=== PATIENT | male | born 1990 | race African-American/Black ===

== ENCOUNTER 2018-05-26 09:24 | Inpatient (IN) ==
[2018-05-26] MEDS ORDERED: KETOROLAC TROMETHAMINE 60 MG/2 ML VIAL IM STA (09:37)
--- NOTE | 2018-05-26 10:10 | Emergency Department Note ---
History of Present Illness General Chief complaint: Leg Injury/Pain Time Seen by Provider: 05/26/18 09:33 History of Present Illness 27-year-old male who presents to emergency department via ambulance for evaluati on of bilateral lower extremity cramping. The patient reports that he ran a little over a mile when he started to experience cramping sensation. He did not fall or stumble. The patient reports no significant prior history of muscle cramps. The patient is currently enrolled in the [employer] since February. He denies any other significant strenuous activities recently. He rates his discomfort a 10 out of 10. 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 Beliefs That Will Affect Care: None marital status: Single Current Living Situation: Other Current Living Situation Comment: apartment with roommates current occupational status: student Other Information That Helps Us Care for You: No Feels Safe at Home: Yes Safety Concerns: Feels Safe At This Time Smoking Status: Never smoker Do You Dip or Chew Tobacco: No Second Hand Exposure: No Tobacco Cessation Education Requested by Patient: No Hx Alcohol Use: Yes Alcohol type: beer Hx Substance Use: No Review of Systems 10 system review was performed and was negative except for pertinent positives and negatives as indicated in history of present illness Physical Exam Vital Signs Vital Signs - 24 hr 05/26/18 09:33 05/26/18 10:52 05/26/18 11:55 Temperature 36.8 C Temperature Source Oral Sepsis Recent Fever Within 48 Hours No Sepsis Action Taken by Nursing No Action Required Pulse Rate 86 Pulse Rate [Apical] 84 Pulse Rhythm [Apical] Pulse Strength [Apical] Respiratory Rate 20 16 16 Respiratory Effort / Characteristics Non-Labored Spontaneous Respiratory Depth Normal Respiratory Pattern Regular Blood Pressure 100/48 L Blood Pressure [Right Arm] 147/73 H 123/52 L Blood Pressure Mean 65 Blood Pressure Mean [Right Arm] 97 75 Blood Pressure Position Lying Blood Pressure Position [Right Arm] Pulse Oximetry 98 76 L Oxygen Delivery Method Room Air 05/26/18 13:06 05/26/18 16:00 Temperature 36.5 C Temperature Source Oral Sepsis Recent Fever Within 48 Hours Sepsis Action Taken by Nursing Pulse Rate Pulse Rate [Apical] 88 80 Pulse Rhythm [Apical] Regular Pulse Strength [Apical] Normal Respiratory Rate 18 20 Respiratory Effort / Characteristics Non-Labored Respiratory Depth Normal Respiratory Pattern Regular Blood Pressure Blood Pressure [Right Arm] 143/69 H 151/91 H Blood Pressure Mean Blood Pressure Mean [Right Arm] 93 111 Blood Pressure Position Blood Pressure Position [Right Arm] Lying Pulse Oximetry 98 95 Oxygen Delivery Method Room Air Room Air CONSTITUTIONAL: Healthy and well nourished. Alert and oriented X 3. Patient appears in moderately severe discomfort. HEENT: Normocephalic, atraumatic. Pupils equal, round and reactive. NECK: Full active range of motion without discomfort. LYMPHATICS: No cervical chain adenopathy. RESPIRATORY: Clear to auscultation bilaterally with no wheezing, crackles, rhonchi or stridor. CARDIOVASCULAR: Regular rate and rhythm with no murmurs, rubs or gallops. GASTROINTESTINAL: Bowel sounds present in all quadrants. Soft and nontender to palpation. MUSCULOSKELETAL: Examination of the lower extremities does not show any obvious soft tissue edema, ecchymosis or palpable spasms/muscular rigidity. Negative logroll bilaterally. Pedal pulses are intact. INTEGUMENTARY: No rash or other significant dermatologic conditions noted. HEMATOLOGIC: No ecchymosis or petechiae. PSYCHIATRIC: Positive affect. NEUROLOGIC: No focal neurologic deficits noted. Course Patient history and physical exam were performed. Nurse's notes were reviewed. Vital signs were reviewed and were the patient was administered IM Toradol, and was provided oral hydration. When this did not provide any significant relief, and the patient continued to bag for more oral hydration, IV access was established, and labs were drawn. The patient was administered IV Valium, and was provided hydration with 2 additional liters of normal saline. Labs were reviewed to show a marked leukocytosis with left shift and bandemia. Patient has a total creatinine kinase of 5147, mild hyponatremia at 135 and creatinine of 2.17. Anion gap is 16. Urinalysis was ordered, but the patient was unable to provide a urine sample while in the emergency department. Findings were discussed with Dr. Garay, ED attending physician, who recommended hospitalist consultation. The case was then discussed with the [facility] hospitalist service, who came to the emergency department and agreed with admission for rhabdomyolysis. Please see their dictation for further treatment and final disposition. Administered Medications Sodium Chloride (Nss 1000ml) 1,000 mls @ 200 mls/hr IV .Q5H SRINIVASAN Stop: 06/25/18 16:18 Last Admin: 05/26/18 16:56 Dose: 200 mls/hr Documented by: [id number] Tramadol HCl (Ultram) 50 mg PO Q4H PRN PRN Reason: Pain Stop: 06/25/18 16:18 Last Admin: 05/26/18 16:57 Dose: 50 mg Documented by: [id number] Discontinued Medications Acetaminophen (Tylenol) 1,000 mg PO NOW STA Stop: 05/26/18 11:41 Last Admin: 05/26/18 12:06 Dose: 1,000 mg Documented by: [id number] Baclofen (Lioresal) 10 mg PO NOW STA Stop: 05/26/18 14:25 Last Admin: 05/26/18 15:48 Dose: 10 mg Documented by: [id number] Diazepam (Valium) 5 mg IV NOW STA Stop: 05/26/18 11:43 Last Admin: 05/26/18 12:06 Dose: 5 mg Documented by: [id number] Diazepam (Valium) 10 mg IV NOW STA Stop: 05/26/18 14:25 Last Admin: 05/26/18 15:05 Dose: 10 mg Documented by: [id number] Diazepam (Valium) Confirm Administered Dose 5 mg .ROUTE .STK-MED ONE Stop: 05/26/18 14:40 Last Admin: 05/26/18 15:22 Dose: Not Given Documented by: [id number] Sodium Chloride (Nss 1000ml) 1,000 mls @ 999 mls/hr IV .Q1H1M ONE Stop: 05/26/18 12:40 Last Infusion: 05/26/18 13:14 Dose: 0 mls/hr Documented by: [id number] Admin: 05/26/18 12:06 Dose: 999 mls/hr Documented by: [id number] Sodium Chloride (Nss 1000ml) 1,000 mls @ 999 mls/hr IV .Q1H1M ONE Stop: 05/26/18 14:38 Last Infusion: 05/26/18 14:50 Dose: 0 mls/hr Documented by: [id number] Admin: 05/26/18 13:49 Dose: 999 mls/hr Documented by: [id number] Ketorolac Tromethamine (Toradol) 60 mg IM NOW STA Stop: 05/26/18 09:38 Last Admin: 05/26/18 09:42 Dose: 60 mg Documented by: [id number] Medical Decision Making Medical Records Attestation: I reviewed the patient's medical records. Home Medications Current Medication List: was personally reviewed by me Laboratory Data Attestation: I reviewed the patient's lab results. Result diagrams: 05/26/18 12:01 05/26/18 12:01 Lab Results 05/26/18 05/26/18 05/26/18 Range/Units 12:01 12:01 12:01 WBC 24.25 H (4.8-10.8) K/uL RBC 5.76 (4.7-6.1) M/uL Hgb 17.8 (14.0-18.0) g/dL Hct 49.6 (42-52) % MCV 86.1 (80-100) fL MCH 30.9 (25-34) pg MCHC 35.9 (32-36) g/dL RDW Std Deviation 40.6 (36.4-46.3) fL RDW Coeff of Ryan 12.9 (11.5-14.5) % Plt Count 310 (130-400) K/uL MPV 10.2 (7.4-10.4) fL Immature Gran % (Auto) 0.5 % Neut % (Auto) 85.0 % Lymph % (Auto) 4.7 % [place] % (Auto) 9.8 % Eos % (Auto) 0.0 % Baso % (Auto) 0.0 % Immature Gran # (Auto) 0.13 H (0.00-0.02) K/uL Neut # (Auto) 20.57 H (1.4-6.5) K/uL Lymph # (Auto) 1.15 L (1.2-3.4) K/uL [place] # (Auto) 2.38 H (0.11-0.59) K/uL Eos # (Auto) 0.01 (0-0.5) K/uL Baso # (Auto) 0.01 (0-0.2) K/uL Sodium 135 L (136-145) mmol/L Potassium 3.7 (3.5-5.1) mmol/L Chloride 98 (98-107) mmol/L Carbon Dioxide 21 (21-32) mmol/L Anion Gap 16.0 H (3-11) BUN 11 (7-18) mg/dl Creatinine 2.17 H (0.6-1.4) mg/dl Est Cr Clr Drug Dosing 61.4 ml/min Est GFR ( Amer) 47.3 Est GFR (Non-Af Amer) 40.8 BUN/Creatinine Ratio 5.2 L (10-20) Glucose 134 H (70-99) mg/dl Calcium 9.9 (8.5-10.1) mg/dl Magnesium 4.4 H (1.8-2.4) mg/dl Total Bilirubin 0.6 (0.2-1) mg/dl AST 107 H (15-37) U/L ALT 44 (12-78) U/L Alkaline Phosphatase 104 (45-117) U/L Total Creatine Kinase 5147 H (39-308) U/L Total Protein 9.6 H (6.4-8.2) gm/dl Albumin 4.8 (3.4-5.0) gm/dl Globulin 4.8 H (2.5-4.0) gm/dl Albumin/Globulin Ratio 1.0 (0.9-2) Imaging Data Attestation: I personally reviewed and interpreted this imaging study as follows: Prescription Drug Monitoring [place] Drug Monitoring Program reviewed and no issues identified Blood Pressure Blood Pressure Findings: Normal blood pressure MDM Narrative Workup today is suggestive of rhabdomyolysis with an acute kidney injury. I do not suspect fracture, therefore x-rays were not performed. The patient was completing the [employer], and I suspect that she has had overexertion. Impression & Plan Rhabdomyolysis, ASHLEY (acute kidney injury), Leukocytosis, Muscle spasm of both lower legs Discharge Plan Visit Data *Final* Discharge Date/Time: 05/26/18 15:19 Chief Complaint: Leg Injury/Pain ED Provider: Phu Garay ED Midlevel Provider: Matthew Owens Discharge Problem: Rhabdomyolysis, ASHLEY (acute kidney injury), Leukocytosis, Muscle spasm of both lower legs Patient Disposition: Admitted As Inpatient Discharge Instructions Interventions: ED Discharge Assessment Last Done: 05/26/18 15:19 Discharge Problem: Rhabdomyolysis Qualifiers: Rhabdomyolysis type: non-traumatic Qualified Code(s): M62.82 - Rhabdomyolysis Leukocytosis Qualifiers: Leukocytosis type: unspecified Qualified Code(s): D72.829 - Elevated white blood cell count, unspecified
[2018-05-26] MEDS ORDERED: ACETAMINOPHEN 500 MG TAB PO STA (11:40)
[2018-05-26] MEDS ORDERED: SODIUM CHLORIDE 0.9% 1000ML 1,000 ML IV ONE ×2 (11:40→13:38)
[2018-05-26] MEDS ORDERED: DIAZEPAM 5 MG/ML INJ 10ML VIAL IV STA ×2 (11:42→14:24)
[2018-05-26 12:27] LABS: Hematocrit (blood only) 49.6 % (42-52); Hemoglobin 17.8 g/dL (14.0-18.0); Mean Corpuscular Hgb Conc 35.9 g/dL (32-36); Mean Corpuscular Volume 86.1 fL (80-100); Mean Platelet Volume 10.2 fL (7.4-10.4); Platelet Count 310 K/uL (130-400); RDW Coefficient of Variation 12.9 % (11.5-14.5); RDW Standard Deviation 40.6 fL (36.4-46.3); Red Blood Count 5.76 M/uL (4.7-6.1); White Blood Count 24.25 K/uL (4.8-10.8)
[2018-05-26 12:44] LABS: Albumin Level 4.8 gm/dl (3.4-5.0); BUN Creatinine Ratio 5.2 (10-20); Calcium 9.9 mg/dl (8.5-10.1); Creatinine Clr Calc Pharmacy 61.4 ml/min; Est GFR (African American) 47.3; Est GFR (Non-African American) 40.8; Magnesium 4.4 mg/dl (1.8-2.4); Potassium 3.7 mmol/L (3.5-5.1)
[2018-05-26 12:46] LABS: Basophils # (auto) 0.01 K/uL (0-0.2); Bilirubin,Total 0.6 mg/dl (0.2-1); Eosinophils # (auto) 0.01 K/uL (0-0.5); Globulin 4.8 gm/dl (2.5-4.0); Immature Granulocytes # (auto) 0.13 K/uL (0.00-0.02); Immature Granulocytes % (auto) 0.5 %; Lymphocytes # (auto) 1.15 K/uL (1.2-3.4); Lymphocytes % (auto) 4.7 %; Monocytes # (auto) 2.38 K/uL (0.11-0.59); Monocytes % (auto) 9.8 %; Neutrophils # (auto) 20.57 K/uL (1.4-6.5); Total Protein 9.6 gm/dl (6.4-8.2)
[2018-05-26] MEDS ORDERED: BACLOFEN 10 MG TAB PO STA (14:24)
--- NOTE | 2018-05-26 14:37 | History & Physical Report ---
Date of Service May 26, 2018 Assessment & Plan (1) Rhabdomyolysis: CK elevated at 5000 unable to give us urine sample so unsure if there is myoglobin in urine Cr elevated at 2.31 aggressive hydration with NSS at 200cc/hr to flush kidneys repeat CK level in the morning this would be non-traumatic rhabdomyolysis (2) ASHLEY (acute kidney injury): Cr is 2.31, unsure of baseline or how long Cr has been elevated patient reports that up until this morning he was feeling well he was making urine yesterday, no problems in the past with renal dysfunction will order UA, will order renal US if renal function does not improve or gets worse tomorrow will consult nephrology (3) Leukocytosis: unclear etiology, no fever, no other symptoms of illness bilateral leg pain started suddenly after running will attempt CXR once he can sit up check UA for source of infection if he spikes fever then start empiric antibiotics (4) Muscle spasm of both lower legs: started at the end of a 1.5 mile run, he was really pushing his pace since they were being tested he finished but then collapsed in pain and could not extend legs has severe pain and cramping of quadriceps, hamstrings, gluts CK elevated at 5000 no relief with Diazepam 5mg IV in the ED on the floor Diazepam has to be PO, will order 5mg PO q6 PRN, Baclofen 20mg BID, Morphine History of Present Illness Chief Complaint: My legs hurt so bad Primary Care Provider: NO PCP 27 yo male with no medical history presents for acute pain in both legs after running today. He says he is in town attending [facility] [employer] [facility]. They have been running several times a week and today was there timed run for 1.5 miles. He said he pushed himself extra hard to try to break his own record which he did end up breaking. However, immediately after the run he collapsed in severe pain in both quadriceps, hamstrings and gluts. His legs were in spasm and he could not walk. He could not move his legs due to the severity of the pain, also his muscles could not move due to the spasm. He was brought to the ED by ambulance. He says that he had no other symptoms other than the severe leg pain. No chest pain, no dyspnea, no palpitations. No fever or chills. He says he has been eating and drinking well. He has not been lifting weights, just running. He denies taking any supplements or steroids. No illicit drug use. Does not smoke cigarettes and drinks only socially. In the ED his CK was elevated at 5000 and his Cr was elevated at 2.3. No history of renal disease. He says his mother has Lupus but no other medical issues, specifically kidney disease, in his family. The pain was not relieved with Valium in the ED and he was given a NSS bolus. 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 Beliefs That Will Affect Care: None marital status: Single Current Living Situation: Other Current Living Situation Comment: apartment with roommates current occupational status: student Other Information That Helps Us Care for You: No Feels Safe at Home: Yes Safety Concerns: Feels Safe At This Time Smoking Status: Never smoker Do You Dip or Chew Tobacco: No Second Hand Exposure: No Tobacco Cessation Education Requested by Patient: No Hx Alcohol Use: Yes Alcohol type: beer Hx Substance Use: No Review of Systems Review of Systems: All systems reviewed & are unremarkable except as noted in HPI & below Musculoskeletal: + stiffness, + limited range of motion (due to severe muscle cramps) and + myalgia (incredible pain in legs bilaterally); no back pain and no joint pain Physical Exam Constitutional: WD/WN, vitals as above Eyes: PERRL, conjunctivae normal, anicteric sclerae ENMT: external ear and nose normal, oropharynx normal Neck: trachea midline, no thyromegaly Respiratory: normal respiratory effort, lungs clear to auscultation Cardiovascular: RRR, no murmur, no edema Gastrointestinal (Abdomen): normal bowel sounds, soft, nontender, no hepatosplenomegaly Musculoskeletal: Head/Neck/Chest: normocephalic, head atraumatic and neck supple Extremities: + limited ROM of extremities, strength 5/5 throughout and + abnormal muscle tone (intense spasm in legs bilaterally, in quads, hamstrings and gluts); no muscle atrophy, no cyanosis and no clubbing Results & Data Vital Signs (Past 12 Hours) Vital Signs Temp Pulse Pulse Resp BP BP Pulse Ox 05/26/18 13:06 88 18 143/69 H 98 05/26/18 11:55 84 16 123/52 L 05/26/18 10:52 16 147/73 H 76 L 05/26/18 09:33 36.8 C 86 20 100/48 L 98 Laboratory Results Laboratory Results - last 24 hr 05/26/18 05/26/18 05/26/18 12:01 12:01 12:01 WBC 24.25 H RBC 5.76 Hgb 17.8 Hct 49.6 MCV 86.1 MCH 30.9 MCHC 35.9 RDW Std Deviation 40.6 RDW Coeff of Ryan 12.9 Plt Count 310 MPV 10.2 Immature Gran % (Auto) 0.5 Neut % (Auto) 85.0 Lymph % (Auto) 4.7 [place] % (Auto) 9.8 Eos % (Auto) 0.0 Baso % (Auto) 0.0 Immature Gran # (Auto) 0.13 H Neut # (Auto) 20.57 H Lymph # (Auto) 1.15 L [place] # (Auto) 2.38 H Eos # (Auto) 0.01 Baso # (Auto) 0.01 Sodium 135 L Potassium 3.7 Chloride 98 Carbon Dioxide 21 Anion Gap 16.0 H BUN 11 Creatinine 2.17 H Est Cr Clr Drug Dosing 61.4 Est GFR ( Amer) 47.3 Est GFR (Non-Af Amer) 40.8 BUN/Creatinine Ratio 5.2 L Glucose 134 H Calcium 9.9 Magnesium 4.4 H Total Bilirubin 0.6 AST 107 H ALT 44 Alkaline Phosphatase 104 Total Creatine Kinase 5147 H Total Protein 9.6 H Albumin 4.8 Globulin 4.8 H Albumin/Globulin Ratio 1.0 Urine Color Urine Appearance Urine pH Ur Specific [place] Urine Protein Urine Glucose (UA) Urine Ketones Urine Blood Urine Nitrite Urine Bilirubin Urine Urobilinogen Ur Leukocyte Esterase Urine RBC Urine WBC Ur Epithelial Cells Other Crystals Urine Bacteria 05/26/18 16:50 WBC RBC Hgb Hct MCV MCH MCHC RDW Std Deviation RDW Coeff of Ryan Plt Count MPV Immature Gran % (Auto) Neut % (Auto) Lymph % (Auto) [place] % (Auto) Eos % (Auto) Baso % (Auto) Immature Gran # (Auto) Neut # (Auto) Lymph # (Auto) [place] # (Auto) Eos # (Auto) Baso # (Auto) Sodium Potassium Chloride Carbon Dioxide Anion Gap BUN Creatinine Est Cr Clr Drug Dosing Est GFR ( Amer) Est GFR (Non-Af Amer) BUN/Creatinine Ratio Glucose Calcium Magnesium Total Bilirubin AST ALT Alkaline Phosphatase Total Creatine Kinase Total Protein Albumin Globulin Albumin/Globulin Ratio Urine Color Brown Urine Appearance Cloudy H Urine pH Ur Specific [place] 1.013 Urine Protein Urine Glucose (UA) Urine Ketones Urine Blood Urine Nitrite Urine Bilirubin Urine Urobilinogen Ur Leukocyte Esterase Urine RBC 0-4 Urine WBC 0-5 Ur Epithelial Cells 0-5 Other Crystals Urine Bacteria 1+ H Code Status & VTE Plan Code Status full code VTE Prophylaxis Plan VTE Prophylaxis will be ordered: No
[2018-05-26] MEDS ORDERED: DIAZEPAM 5 MG/ML INJ 10ML VIAL ONE (14:39)
[2018-05-26] MEDS ORDERED: ACETAMINOPHEN 325 MG TAB PO PRN (16:19)
[2018-05-26] MEDS ORDERED: ONDANSETRON INJ 2 MG/ML 2 ML VIAL IV PRN (16:19)
[2018-05-26] MEDS: SODIUM CHLORIDE 0.9% 1000ML 1,000 ML IV SCH ×2 (16:56→22:05)
[2018-05-26] MEDS: TRAMADOL HCL 50 MG TABLET PO PRN (16:57)
[2018-05-26 18:12] LABS: Appearance Urine Cloudy (Clear); Color Urine Brown
[2018-05-26 18:15] LABS: Specific Gravity Urine 1.013 (1.000-1.060)
[2018-05-26 18:18] LABS: Bacteria Urine 1+ (Negative); RBC Urine 0-4 /hpf (0-4); WBC Urine 0-5 /hpf (0-5)
[2018-05-26 18:27] LABS: Epithelial Cell Urine 0-5 /lpf (0-5)
[2018-05-26] MEDS ORDERED: DIAZEPAM 5 MG/ML INJ 10ML VIAL IV PRN (18:40)
[2018-05-26] MEDS: diazePAM 5 MG TABLET PO PRN (20:07)
[2018-05-26] MEDS: MoRPHine SULFATE 4 MG/ML 1 ML CARP\\VIAL IV PRN (21:06)
[2018-05-26] MEDS: BACLOFEN 20 MG TAB PO SCH (21:06)
[2018-05-26] MEDS ORDERED: HYDROmorphone INJ 1 MG/ML SYRINGE IV STA (22:49)
[2018-05-27] MEDS: MoRPHine SULFATE 4 MG/ML 1 ML CARP\\VIAL IV PRN ×4 (02:30→16:11)
[2018-05-27] MEDS: SODIUM CHLORIDE 0.9% 1000ML 1,000 ML IV SCH ×4 (02:30→17:05)
[2018-05-27] MEDS: diazePAM 5 MG TABLET PO PRN ×2 (02:30→15:11)
[2018-05-27] MEDS ORDERED: HYDROmorphone INJ 1 MG/ML SYRINGE IV STA (05:32)
[2018-05-27] MEDS ORDERED: ACETAMINOPHEN 1,000 MG/100 ML VIAL IV STA (05:32)
[2018-05-27 06:23] LABS: Hematocrit (blood only) 45.3 % (42-52); Hemoglobin 16.6 g/dL (14.0-18.0); Mean Corpuscular Hgb Conc 36.6 g/dL (32-36); Mean Platelet Volume 10.6 fL (7.4-10.4); Platelet Count 239 K/uL (130-400); RDW Coefficient of Variation 13.3 % (11.5-14.5); RDW Standard Deviation 41.2 fL (36.4-46.3); Red Blood Count 5.33 M/uL (4.7-6.1); White Blood Count 21.09 K/uL (4.8-10.8)
[2018-05-27 06:54] LABS: Calcium 7.4 mg/dl (8.5-10.1); Creatinine Clr Calc Pharmacy 37.9 ml/min; Est GFR (African American) 25.3; Est GFR (Non-African American) 21.8; Potassium 5.8 mmol/L (3.5-5.1)
[2018-05-27] MEDS: BACLOFEN 20 MG TAB PO SCH ×2 (07:58→22:07)
[2018-05-27] MEDS ORDERED: SODIUM POLYSTYRENE SULFONATE 30 GM/120 ML UDP PO STA (08:01)
[2018-05-27] MEDS ORDERED: SODIUM POLYSTYRENE SULFONATE 15G/60ML SUSP PO STA ×2 (08:11→16:39)
[2018-05-27] MEDS ORDERED: POTASSIUM CHLORIDE 20 MEQ TABCR PO SCH (09:00)
--- NOTE | 2018-05-27 12:08 | Nephrology Consultation ---
Date of Consultation May 27, 2018 Assessment & Plan (1) ASHLEY (acute kidney injury): -- ASHLEY on the basis of rhabdomyolysis. Urine sediment is bland. Will consider renal US only if kidney function fails to improve over next 24 - 48 hours (2) Hyperkalemia: -- Kayexelate 60 g po x 1 has been administered. Patient has been transferred to telemetry. Awaiting follow up PRP (3) Rhabdomyolysis: -- No recent exposure to statins, herbal supplements or protein powders -- Continue 0.9 NS IV at 200 cc/hr. Patient remains nonoliguric -- Monitor serial CPK History of Present Illness Reason for Consultation: ASHLEY, hyperkalemia, rhabdomyolysis Attending Physician: Gabriele Chan, DO History of Present Illness Mr. Lindsey is a 27 year old male who is seen at the request of Dr. Chan for evaluation of ASHLEY, hyperkalemia and rhabdomyolysis. Medical records in the EMR were reviewed today and are summarized as follows: Mr. Castillo has enjoyed good health. He has no chronic medical illnesses. He is not on any prescription medications. He denies the use of OTC herbal supplements or protein powders. 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 Following training he experienced severe cramping of his calves and was unable to ambulate. He was brought to the ED where CPK was > 5,000 and patient was noted to have hyperkalemia and ASHLEY (creatinine 3.6). Hyperkalemia has been medically managed. 0.9 NS at 200 cc/hr IV has been started. Nephrology consultation has been requested in case dialysis becomes necessary. 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 Beliefs That Will Affect Care: None marital status: Single Current Living Situation: Other Current Living Situation Comment: apartment with roommates current occupational status: student Other Information That Helps Us Care for You: No Feels Safe at Home: Yes Safety Concerns: Feels Safe At This Time Smoking Status: Never smoker Do You Dip or Chew Tobacco: No Second Hand Exposure: No Tobacco Cessation Education Requested by Patient: No Hx Alcohol Use: Yes Alcohol type: beer Hx Substance Use: No Review of Systems Constitutional: no fever Respiratory: no dyspnea Cardiovascular: no chest pain Gastrointestinal: no abdominal pain and no diarrhea/loose stools Genitourinary: no dysuria Physical Exam Constitutional: WD/WN, vitals as above Eyes: PERRL, conjunctivae normal, anicteric sclerae Neck: trachea midline, no thyromegaly Respiratory: normal respiratory effort, lungs clear to auscultation Cardiovascular: Rate/Rhythm: regular rate and regular rhythm Heart Sounds: no murmur Extremities: + edema (tense swelling of bilateral LE) Gastrointestinal (Abdomen): normal bowel sounds, soft, nontender, no hepatosplenomegaly Results & Data Vital Signs (Past 12 Hours) Vital Signs Temp Pulse Pulse Resp BP Pulse Ox 05/27/18 11:33 37.1 C 75 18 165/97 H 99 05/27/18 10:46 37.0 C 84 20 164/97 H 99 05/27/18 08:38 36.8 C 72 16 154/96 H 99 Laboratory Results Laboratory Tests 05/26/18 05/26/18 05/27/18 12:01 16:50 05:36 WBC 21.09 H Hgb 16.6 Hct 45.3 Plt Count 239 Sodium Potassium Chloride Carbon Dioxide BUN Creatinine Calcium Total Creatine Kinase 5147 H Urine Color Brown Urine Appearance Cloudy H Ur Specific [place] 1.013 Urine RBC 0-4 05/27/18 05:36 WBC Hgb Hct Plt Count Sodium 132 L Potassium 5.8 H D Chloride 102 Carbon Dioxide 22 BUN 26 H D Creatinine 3.64 H D Calcium 7.4 L D Total Creatine Kinase Urine Color Urine Appearance Ur Specific [place] Urine RBC (1) Rhabdomyolysis Rhabdomyolysis type: non-traumatic Qualified Code(s): M62.82 - Rhabdomyolysis
[2018-05-27 12:43] LABS: BUN Creatinine Ratio 6.3 (10-20); Calcium 7.4 mg/dl (8.5-10.1); Creatinine Clr Calc Pharmacy 30.2 ml/min; Est GFR (African American) 19.2; Est GFR (Non-African American) 16.6
[2018-05-27 12:56] LABS: Potassium 5.2 mmol/L (3.5-5.1)
--- NOTE | 2018-05-27 13:48 | Hospitalist Progress Note ---
Date of Service May 27, 2018 Assessment & Plan (1) Rhabdomyolysis: CK elevated at 5000 on admission level could not be calculated this AM due to results being above linearity, sent to [facility] will repeat tomorrow urine brown in color, most things could not be analyzed continue aggressive hydration with NSS at 200cc/hr to flush kidneys this would be non-traumatic rhabdomyolysis (2) ASHLEY (acute kidney injury): Cr was 2.31 on admission, unsure of baseline or how long Cr has been elevated patient reports that up until this morning he was feeling well he was making urine yesterday, no problems in the past with renal dysfunction Cr up to 3.6 and then 4.5 today making adequate urine, non-oliguric consulted Dr. Sanchez, recommends to continue aggressive hydration will repeat BMP this evening and tomorrow AM (3) Hyperkalemia: up at 5.8 this morning improved to 5.2 with Kayexalate will give another dose of Kayexalate this evening since not normal and still with ASHLEY (4) Leukocytosis: unclear etiology, no fever, no other symptoms of illness bilateral leg pain started suddenly after running WBC down to 21k now, still no fever continue to monitor for improvement (5) Muscle spasm of both lower legs: started at the end of a 1.5 mile run, he was really pushing his pace since they were being tested he finished but then collapsed in pain and could not extend legs has severe pain and cramping of quadriceps, hamstrings, gluts CK elevated at 5000 continue Diazepam and Baclofen PRN, pain is actually a lot better today less spasm Subjective patient feeling better, less pain in legs able to ambulate to the bathroom with walker reviewed labs, Cr up to 3.6 and K high at 5.8 moved patient to telemetry for rhythm monitoring given high K discussed with Dr. Sanchez, he recommended repeat BMP at noon this showed Cr up to 4.57 and K 5.2 patient making urine, over 800cc since admission urine is very dark in color WBC down slightly to 21k, no fever, no signs of infection Review of Systems Review of Systems: All systems reviewed & are unremarkable except as noted in HPI & below Genitourinary: + hematuria (very dark urine) Musculoskeletal: + myalgia (quads and hamstrings, a lot better today) Physical Exam Constitutional: WD/WN, vitals as above Eyes: PERRL, conjunctivae normal, anicteric sclerae ENMT: external ear and nose normal, oropharynx normal Neck: trachea midline, no thyromegaly Respiratory: normal respiratory effort, lungs clear to auscultation Cardiovascular: RRR, no murmur, no edema Gastrointestinal (Abdomen): normal bowel sounds, soft, nontender, no hepatosplenomegaly Musculoskeletal: Head/Neck/Chest: normocephalic, head atraumatic and neck supple Extremities: + limited ROM of extremities, strength 5/5 throughout and + abnormal muscle tone (spasm in legs bilaterally, in quads, hamstrings and gluts, less intense); no muscle atrophy, no cyanosis and no clubbing Skin: no rashes, warm and dry Neurologic: patellar DTR's 2+ bilat, sensation intact and PERRL, EOMI, accommodation nl, no face palsy, no dysarthria Psychiatric: A+Ox3, euthymic affect Lymphatic: no cervical or axillary lymphadenopathy Results & Data Vital Signs (Past 12 Hours) Vital Signs Temp Pulse Pulse Resp BP Pulse Ox 05/27/18 11:33 37.1 C 75 18 165/97 H 99 05/27/18 10:46 37.0 C 84 20 164/97 H 99 05/27/18 08:38 36.8 C 72 16 154/96 H 99 Laboratory Results Laboratory Results - last 24 hr 05/26/18 05/27/18 05/27/18 16:50 05:36 05:36 WBC 21.09 H RBC 5.33 Hgb 16.6 Hct 45.3 MCV 85.0 MCH 31.1 MCHC 36.6 H RDW Std Deviation 41.2 RDW Coeff of Ryan 13.3 Plt Count 239 MPV 10.6 H Sodium 132 L Potassium 5.8 H D Chloride 102 Carbon Dioxide 22 Anion Gap 8.0 BUN 26 H D Creatinine 3.64 H D Est Cr Clr Drug Dosing 37.9 Est GFR ( Amer) 25.3 Est GFR (Non-Af Amer) 21.8 BUN/Creatinine Ratio 7.0 L Glucose 85 Calcium 7.4 L D Total Creatine Kinase Urine Color Brown Urine Appearance Cloudy H Urine pH Ur Specific Florence 1.013 Urine Protein Urine Glucose (UA) Urine Ketones Urine Blood Urine Nitrite Urine Bilirubin Urine Urobilinogen Ur Leukocyte Esterase Urine RBC 0-4 Urine WBC 0-5 Ur Epithelial Cells 0-5 Other Crystals Urine Bacteria 1+ H 05/27/18 11:57 WBC RBC Hgb Hct MCV MCH MCHC RDW Std Deviation RDW Coeff of Ryan Plt Count MPV Sodium 132 L Potassium 5.2 H Chloride 101 Carbon Dioxide 24 Anion Gap 7.0 BUN 29 H Creatinine 4.57 H* D Est Cr Clr Drug Dosing 30.2 Est GFR ( Amer) 19.2 Est GFR (Non-Af Amer) 16.6 BUN/Creatinine Ratio 6.3 L Glucose 95 Calcium 7.4 L Total Creatine Kinase Urine Color Urine Appearance Urine pH Ur Specific Florence Urine Protein Urine Glucose (UA) Urine Ketones Urine Blood Urine Nitrite Urine Bilirubin Urine Urobilinogen Ur Leukocyte Esterase Urine RBC Urine WBC Ur Epithelial Cells Other Crystals Urine Bacteria Medications Administered Current Inpatient Medications Acetaminophen (Tylenol) 650 mg PO Q4H PRN PRN Reason: pain/fever Stop: 06/25/18 16:18 Baclofen (Lioresal) 20 mg PO BID [facility] Stop: 06/25/18 20:59 Last Admin: 05/27/18 07:58 Dose: 20 mg Documented by: Diazepam (Valium) 5 mg PO Q6 PRN PRN Reason: Muscle Spasm Stop: 06/25/18 20:59 Last Admin: 05/27/18 02:30 Dose: 5 mg Documented by: Sodium Chloride (Nss 1000ml) 1,000 mls @ 200 mls/hr IV .Q5H SRINIVASAN Stop: 06/25/18 16:18 Last Admin: 05/27/18 12:09 Dose: 200 mls/hr Documented by: Morphine Sulfate (Morphine Sulfate) 4 mg IV Q4H PRN PRN Reason: Pain Stop: 06/09/18 18:39 Last Admin: 05/27/18 12:10 Dose: 4 mg Documented by: Ondansetron HCl (Zofran) 4 mg IV Q6H PRN PRN Reason: Nausea Stop: 06/25/18 16:18 Tramadol HCl (Ultram) 50 mg PO Q4H PRN PRN Reason: Pain Stop: 06/25/18 16:18 Last Admin: 05/26/18 16:57 Dose: 50 mg Documented by: (1) Leukocytosis Leukocytosis type: unspecified Qualified Code(s): D72.829 - Elevated white blood cell count, unspecified (2) Rhabdomyolysis Rhabdomyolysis type: non-traumatic Qualified Code(s): M62.82 - Rhabdomyolysis
[2018-05-27] MEDS: TRAMADOL HCL 50 MG TABLET PO PRN (15:11)
[2018-05-27 16:26] LABS: BUN Creatinine Ratio 5.7 (10-20); Calcium 7.1 mg/dl (8.5-10.1); Creatinine Clr Calc Pharmacy 27.2 ml/min; Est GFR (African American) 16.9; Est GFR (Non-African American) 14.6; Potassium 5.8 mmol/L (3.5-5.1)
[2018-05-27] MEDS: HYDROmorphone INJ 1 MG/ML SYRINGE IV PRN ×2 (17:05→20:29)
[2018-05-27] MEDS ORDERED: FUROSEMIDE 80 MG in SYRINGE 0 ML IV ONE (17:08)
[2018-05-27 19:58] VITALS: O2SAT 98
[2018-05-27] MEDS ORDERED: SODIUM POLYSTYRENE SULFONATE 15G/60ML SUSP PO SCH (21:00)
[2018-05-27 21:14] LABS: BUN Creatinine Ratio 5.6 (10-20); Calcium 7.6 mg/dl (8.5-10.1); Creatinine Clr Calc Pharmacy 23.8 ml/min; Est GFR (African American) 14.4; Est GFR (Non-African American) 12.4; Potassium 5.8 mmol/L (3.5-5.1)
[2018-05-27] MEDS ORDERED: DEXTROSE 50% 50 ML SYRINGE IV ONE (21:43)
[2018-05-27] MEDS ORDERED: NovoLIN-R INSULIN PER UNIT CHARGE IV STA (21:43)
[2018-05-27] MEDS ORDERED: SODIUM BICARBONATE 8.4% 150 MEQ in WATER, STERILE 1,000 ML IV SCH (21:45)
[2018-05-27] MEDS ORDERED: INSULIN HUMAN REGULAR PER UNIT 10 UNITS in SYRINGE 9.9 ML IV ONE (22:00)
[2018-05-27 22:29] LABS: Albumin Level 3.3 gm/dl (3.4-5.0); Bilirubin,Total 0.6 mg/dl (0.2-1); Total Protein 7.3 gm/dl (6.4-8.2)
[2018-05-27 23:12] LABS: INR 1.1 (0.9-1.1); Prothrombin Time 11.2 Seconds (9.0-12.0)
[2018-05-27 23:17] VITALS: BP 148/88; PULSE 94; TEMP 98.8
--- NOTE | 2018-05-28 07:32 | CT Scan Report ---
ABDOMEN AND PELVIS CT WITHOUT CONTRAST CT DOSE: 541.34 mGy.cm HISTORY: elevated liver functions TECHNIQUE: Multiaxial CT images of the abdomen and pelvis were performed without contrast. A dose lo wering technique was utilized adhering to the principles of ALARA. COMPARISON STUDY: None. FINDINGS: The lung bases are clear. No fractures within the visualized osseous structures. Suboptimal evaluation the abdomen and pelvis due to motion artifact, metallic artifact, and the noncontrast margo dy. No definite bowel wall thickening or obstruction. The visualized portions of the appendix appear unremarkable. Mild subcutaneous edema within the lumbar region. No bowel wall thickening or obstructi on. The unenhanced liver, gallbladder, spleen, adrenal glands, pancreas, and kidneys appear unremarka ble. No retroperitoneal lymphadenopathy. No pelvic free fluid. Normal bladder. IMPRESSION: 1. No definite bowel wall thickening or obstruction. 2. No hepatic lesions identified on this noncontrast study. 3. The visualized appendix is unremarkable. Electronically signed by: Cristobal Huertas M.D. 05/28/2018 7:31 AM
--- NOTE | 2018-05-29 09:14 | Discharge Summary ---
Date of Service May 31, 2018 Admission HPI Per Admitting Provider 27 yo male with no medical history presents for acute pain in both legs after running today. He says he is in town attending [facility] [facility]. They have been running several times a week and today was there timed run for 1.5 miles. He said he pushed himself extra hard to try to break his own record which he did end up breaking. However, immediately after the run he collapsed in severe pain in both quadriceps, hamstrings and gluts. His legs were in spasm and he could not walk. He could not move his legs due to the severity of the pain, also his muscles could not move due to the spasm. He was brought to the ED by ambulance. He says that he had no other symptoms other than the severe leg pain. No chest pain, no dyspnea, no palpitations. No fever or chills. He says he has been eating and drinking well. He has not been lifting weights, just running. He denies taking any supplements or steroids. No illicit drug use. Does not smoke cigarettes and drinks only socially. In the ED his CK was elevated at 5000 and his Cr was elevated at 2.3. No history of renal disease. He says his mother has Lupus but no other medical issues, specifically kidney disease, in his family. The pain was not relieved with Valium in the ED and he was given a NSS bolus. Discharge Data Consultations 05/26/18 13:40 ED Decision to Admit Stat 05/27/18 08:00 Consult Nephrology Routine
--- NOTE | 2018-06-01 21:03 | Discharge Summary ---
Date of Service May 27, 2018 Admission HPI Per Admitting Provider 27 yo male with no medical history presents for acute pain in both legs after running today. He says he is in town attending [employer]. They have been running several times a week and today was there timed run for 1.5 miles. He said he pushed himself extra hard to try to break his own record which he did end up breaking. However, immediately after the run he collapsed in severe pain in both quadriceps, hamstrings and gluts. His legs were in spasm and he could not walk. He could not move his legs due to the severity of the pain, also his muscles could not move due to the spasm. He was brought to the ED by ambulance. He says that he had no other symptoms other than the severe leg pain. No chest pain, no dyspnea, no palpitations. No fever or chills. He says he has been eating and drinking well. He has not been lifting weights, just running. He denies taking any supplements or steroids. No illicit drug use. Does not smoke cigarettes and drinks only socially. In the ED his CK was elevated at 5000 and his Cr was elevated at 2.3. No history of renal disease. He says his mother has Lupus but no other medical issues, specifically kidney disease, in his family. The pain was not relieved with Valium in the ED and he was given a NSS bolus. Admission Exam Per Admitting Provider Constitutional: WD/WN, vitals as above Eyes: PERRL, conjunctivae normal, anicteric sclerae ENMT: external ear and nose normal, oropharynx normal Neck: trachea midline, no thyromegaly Respiratory: normal respiratory effort, lungs clear to auscultation Cardiovascular: RRR, no murmur, no edema Gastrointestinal (Abdomen): normal bowel sounds, soft, nontender, no hepatosplenomegaly Musculoskeletal: Head/Neck/Chest: normocephalic, head atraumatic and neck supple Extremities: + limited ROM of extremities, strength 5/5 throughout and + abnormal muscle tone (intense spasm in legs bilaterally, in quads, hamstrings and gluts); no muscle atrophy, no cyanosis and no clubbing Skin: no rash, no wounds, no erythema, warm and dry Neuro: no focal neurologic deficits, CN II-XII intact to exam, no sensory deficit, no tremors + intense muscle spasms in quads, hamstrings and gluts Psych: AAOx3, euthymic mood Lymph: no lymphadenopathy Principal Diagnosis Acute liver failure Discharge Exam Constitutional WD/WN, vitals as above Eyes PERRL, conjunctivae normal, anicteric sclerae ENMT external ear and nose normal, oropharynx normal Neck trachea midline, no thyromegaly Respiratory normal respiratory effort, lungs clear to auscultation Cardiovascular RRR, no murmur, no edema Gastrointestinal (Abdomen) normal bowel sounds, soft, nontender, no hepatosplenomegaly Musculoskeletal Head/Neck/Chest: normocephalic, head atraumatic and neck supple Extremities: + limited ROM of extremities, strength 5/5 throughout and + abnormal muscle tone (spasm in legs bilaterally, in quads, hamstrings and gluts, less intense); no muscle atrophy, no cyanosis and no clubbing Skin no rashes, warm and dry Neurologic patellar DTR's 2+ bilat, sensation intact and PERRL, EOMI, accommodation nl, no face palsy, no dysarthria Psychiatric A+Ox3, euthymic affect Lymphatic no cervical or axillary lymphadenopathy Discharge Data Allergies Allergy/AdvReac Type Severity Reaction Status Date / Time No Known Allergies Allergy Unverified 05/26/18 09:42 Consultations 05/26/18 13:40 ED Decision to Admit Stat 05/27/18 08:00 Consult Nephrology Routine Ordered Studies 05/27/18 22:39 CT abd pelvis wo con Stat Hospital Course (1) Acute liver failure: on admission AST was 107 and ALT was 44, bili and Alk phos normal patient did not c/o RUQ pain, was eating well, no scleral icterus labs repeated in the evening on 05/27, [place] [address] and ALT was 2339 bilirubin and alk phos again were normal CT abdomen/pelvis was normal patient transferred to tertiary care center due to acute liver failure and lack of hepatology at [facility] (2) Rhabdomyolysis: CK elevated at 5000 on admission level could not be calculated this AM due to results being above linearity, sent to [facility] will repeat tomorrow urine brown in color, most things could not be analyzed continue aggressive hydration with NSS at 200cc/hr to flush kidneys this would be non-traumatic rhabdomyolysis (3) ASHLEY (acute kidney injury): Cr was 2.31 on admission, unsure of baseline or how long Cr has been elevated patient reports that up until this morning he was feeling well he was making urine yesterday, no problems in the past with renal dysfunction Cr up to 3.6 and then 4.5 and then 5.08 other than a small amount of urine in the morning, he did not urinate the rest of the day on 05/27 considered oliguric failure d/w Dr. Sanchez, gave Lasix 80mg IV and reduced fluids on last check his Cr was continuing to rise at 5.8 electrolytes were stable transferred to tertiary care (4) Hyperkalemia: up at 5.8 this morning improved to 5.2 with Kayexalate elevated again at 5.8, two more doses of Kayexalate provided Lasix also given was 5.8 on last check prior to discharge (5) Leukocytosis: unclear etiology, no fever, no other symptoms of illness bilateral leg pain started suddenly after running WBC down to 21k in the morning, still no fever continue to monitor for improvement (6) Muscle spasm of both lower legs: started at the end of a 1.5 mile run, he was really pushing his pace since they were being tested he finished but then collapsed in pain and could not extend legs has severe pain and cramping of quadriceps, hamstrings, gluts CK elevated at 5000 continue Diazepam and Baclofen PRN, pain is actually a lot better today less spasm use IV narcotics PRN Total Time Total Time Spent Total Time Spent (In Minutes): 25 minutes Total Time Includes: Discharge Planning, Medication Reconciliation and Communication With Other Providers Discharge Plan Discharge Items Patient Disposition: Transfer Acute Care Hospital Reason For Visit: RHABDOMYOLYSIS,ASHLEY Discharge Diagnosis: hepatic failure Rhabdomyolysis Condition: Critical Discharge Goals: Decrease discomfort, Diagnostic testing and Therapeutic intervention Activity: Resume your previous activity Non-emergency contact: Primary Care Provider Call non-emergency contact if: you have any medication questions Follow-up/Referrals: PCP,NO [Primary Care Provider] - Diet: Regular Addtl Provider Instructions: follow up at tertiary care Prescriptions: Discontinued ibuprofen 200 mg Tablet 200 mg PO DIRECTED PRN (Reason: Pain) RF: 0 Stand-Alone Forms: [facility] Discharge Orders: Discharge Order (Routine); Ordered 05/28/18 Ordered By: Abdi Angel Admission Data Admit Date/Time: 05/26/18 14:04 Attending Provider: Gabriele Chan Admit Provider: Gabriele Chan Primary Care Provider: PCP,NO Other Providers: Gabriele Chan ; Emeka Sanchez Service: Telemetry Other Interventions: Discharge Summary Assessment (RN) Last Done: 05/28/18 00:39 DC Date/Time DO NOT enter until pt leaves facility: 05/28/18 00:35
== END 2018-05-28 00:35 | disposition short-term general hospital (02) | DRG 683 ==
LOC: ED 09:24 → 4E 14:04 → 2S 05-27 08:03
DX: M62.838 Other muscle spasm; N17.9 Acute kidney failure, unspecified; E87.5 Hyperkalemia; D72.829 Elevated white blood cell count, unspecified; M62.82 Rhabdomyolysis